=== PATIENT | female | born 1960 | race Caucasian/White ===

== ENCOUNTER 2018-04-10 17:54 | Emergency (ER) | payer OTHER ==
[~2018-04-10] VITALS: Ht 157.5 cm; Wt 79.8 kg
[~2018-04-10 17:54] MED LIST: FLEXERIL10 MG PO; GUAIFEN-CODEIN118 M1 PO; ZITHROMAX250 M2 PO
--- NOTE | 2018-04-10 18:11 | ED SKIN/ALLERGY COMPLAINT ---
History of Present Illness General Chief Complaint: Animal/Insect Bite Stated Complaint: BIBA BEE STING/EPI USE Source: patient Exam Limitations: no limitations Vital Signs & Intake/Output Vital Signs & Intake/Output Vital Signs Date Time Temp Pulse Resp B/P B/P Pulse O2 O2 Flow FiO2 Mean Ox Delivery Rate 04/10 1956 98.2 85 18 132/67 96 Room Air 04/10 1802 98.6 90 20 159/84 98 Room Air Allergies Coded Allergies: MDX - Bee Venom (Bee Venom) (BEES 04/16/12) MDX - Ibuprofen (From MOTRIN) (RASH 02/23/13) MDX - PCN (penicillin) (PCN (PENICILLIN)) (RASH 04/16/12) Reconcile Medications Azithromycin (Zithromax) 250 MG TABLET 1 DP PO AD uri 2 the first day followed by 1 for days 2-5 Codeine Phosphate/Guaifenesi (Guaifen-Codeine 100-10 MG/5 Ml) 10 MG-100 MG/5 ML LIQUID 10 ML PO Q6HR PRN COUGH CYCLOBENZAPRINE HCL (Flexeril) 10 MG TAB 1 TAB PO TID MUSCLE RELAXATION Epinephrine (Epipen) 0.3 MG/0.3 ML AUTO.INJCT 0.3 MG SC AD PRN allergic reaction Triage Note: BIBA FROM HOME S/P BEE STING TO RIGHT INDEX FINGER. PATIENT HAS KNOWN ANAPHYLAXIS TO BEE STING WITH EPI-PEN PRESCRIPTION. PATIENT UNABLE TO ADMINISTER EPI AT HOME DUE TO IT BEING AND CLOUDY. PATIENT CALLED 911 INDEPENDENTLY, EMS ADMINISTERED 1 EPI AUTO-INJECT L THIGH AND 50MG IV BENADRYL. PATIENT ARRIVES WITH PRE-HOSPITAL IV #18 TO [facility]. PATIENT ABLE TO SPEAK, ROOM O2 SATURATION 98%. PATIENTS LUNGS CLEAR TO AUSCULTATION, DENIES SWELLING OF TONGUE, DENIES CP, ABD PAIN, SOB. PLACED ON ORACLE APPLICATIONS ANALYST, VITALS OBTAINED. Triage Nurses Notes Reviewed? yes Onset: Abrupt Duration: minute(s):, constant, continues in ED Timing: single episode today HPI: Patient presents for evaluation of possible allergic reaction to a bee sting. Patient has a known allergy to bees. She attempted to use her EpiPen but it was . She contacted 911. Patient was treated with an EpiPen prehospital along with 50 of Benadryl. After the bee sting she began feeling some shortness of breath and a strange feeling in her throat. (Lesley HUMPHRIES,Loyd Valdez) Past History Travel History Traveled to [place] past 21 day No Medical History Any Pertinent Medical History? 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 No (Lesley HUMPHRIES,Loyd Valdez) Review of Systems Review of Systems Constitutional: Reports: no symptoms. EENTM: Reports: no symptoms. Respiratory: Reports: no symptoms. Cardiovascular: Reports: no symptoms. GI: Reports: no symptoms. Genitourinary: Reports: no symptoms. Musculoskeletal: Reports: no symptoms. Skin: Reports: no symptoms. Neurological/Psychological: Reports: no symptoms. Hematologic/Endocrine: Reports: no symptoms. Immunologic/Allergic: Reports: no symptoms. All Other Systems: Reviewed and Negative (Lesley HUMPHRIES,Loyd Valdez) Physical Exam Physical Exam General Appearance: SEE BELOW Comments: Gen.: Well-nourished, well-developed, no acute respiratory distress. Head: Normocephalic, atraumatic. Eyes: Normal inspection bilaterally, mild/mod conjunctival injection Ears: Normal inspection bilaterally Nose: Normal inspection Throat/mouth : Moist mucosa, no oropharyngeal soft tissue swelling Neck: Supple, full range of motion, no goiter, no stridor Heart: Regular rate and rhythm, no murmurs rubs or gallops Lungs: Clear to auscultation bilaterally with normal air entry Chest: Nontender Back: Normal range of motion, scattered hives Abdomen: Soft, nontender, nondistended, normal bowel sounds Extremities: Normal range of motion grossly, equal radial pulses, no cyanosis clubbing or edema Neurologic: Cranial nerves grossly intact, speech is clear Skin: warm and dry (Loyd Sutton MD) Progress Differential Diagnosis: allergic reaction, anaphylaxis, drug reaction, urticaria Plan of Care: Current Medications Sig/Lizy Start time Last Medication Dose Stop Time Status Admin Famotidine 20 MG ONCE ONE 04/10 1815 UNVr 04/10 (Pepcid) 04/10 1816 1800 Methylprednisolone 125 MG ONCE ONE 04/10 1815 UNVr 04/10 (Solu Medrol) 04/10 1816 1800 Comments: 04/10/2018 6:55:47 PM patient signed out to Dr. 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 (Lesley HUMPHRIES,Loyd Valdez) Comments: She requests to go home. Spoke with patient at length regarding return precautions, demonstrated understanding by repeating in her own words. Discharged home to self-care with family observation. (Doug Klein MD) Departure Departure Condition: Stable Clinical Impression Primary Impression: Allergic reaction to bee sting Referrals: Brigette Machuca MD (PCP/Family) Departure Forms: Customer Survey General Discharge Information Prescriptions: Current Visit Scripts Epinephrine (Epipen) 0.3 MG SC AD PRN allergic reaction #1 UNIT (Loyd Sutton MD) Departure Disposition: HOME OR SELF CARE Comments Please note that there might be incidental findings in your evaluation that are unrelated to the current emergency department visit. Please notify your primary care doctor about this emergency department visit in order to obtain and review all of the testing performed so that these incidental findings can be monitored as needed. If you had an x-ray performed, please understand that some fractures may not be seen on the initial set of x-rays. If your symptoms persist you might need a repeat set of x-rays to check for such a fracture. If you had a laceration evaluated, please understand that foreign bodies such as glass or wood may not be visible to the naked eye or on plain x-rays. If the wound becomes red, swollen, increasingly more painful or if there is any drainage from the wound, please have it reevaluated by a physician for the possibility of a retained foreign body. If you're unable to follow up as outlined in the discharge instructions please return to the emergency department. (Doug Klein MD)
[2018-04-10 19:56] VITALS: BP 132/67
[2018-04-10] MEDS ORDERED: EPIPEN0.3 MG/0.1 SC (20:44)
== END 2018-04-10 20:43 ==
LOC: ERH 17:54
DX: T63.441A Toxic effect of venom of bees, accidental (unintentional), initial encounter (principal); R06.02 Shortness of breath; F17.210 Nicotine dependence, cigarettes, uncomplicated
CPT/HCPCS: 96374; 96375; J2930